=== PATIENT | male | born 1990 | race African-American/Black ===

== ENCOUNTER 2016-06-23 23:28 | Emergency (ER) | payer BC, OTHER ==
[~2016-06-23] VITALS: Ht 172.7 cm; Wt 88.5 kg
[2016-06-24] MEDS ORDERED: IV NORMAL SALINE 1000ML BAG 1,000 ML IV ONE
[2016-06-24 00:14] LABS: BASO % 0 % (0-3); EOS % 1 % (0-3); HEMATOCRIT 47.9 % (39.0-53.0); HEMOGLOBIN 16.1 g/dL (13.0-17.5); LYMPH % 17 % (24-48); MEAN CORPUSCULAR HEMOGLOBIN 32 pg (25-35); MEAN CORPUSCULAR HGB CONC 34 g/dL (31-37); MEAN CORPUSCULAR VOLUME 94 fL (79-100); MONO % 10 % (0-9); NEUT % 72 % (31-73); PLATELET COUNT 271 x10^3/uL (140-400); RED CELL DISTRIBUTION WIDTH 13.8 % (11.5-14.5); WHITE BLOOD COUNT 11.9 x10^3/uL (4.0-11.0)
[2016-06-24 00:16] LABS: BILIRUBIN,URINE NEGATIVE (NEG); GLUCOSE,URINE NEGATIVE (NEG); NITRITE,URINE NEGATIVE (NEG); PH,URINE 7.5; PROTEIN,URINE 30 mg/dL (NEG-TRACE)
[2016-06-24 00:21] LABS: BACTERIA,URINE 0 /HPF (0-FEW); RBC,URINE OCC /HPF (0-2); SQUAMOUS EPITHELIAL CELL,UR OCC /LPF
[2016-06-24 00:25] LABS: BARBITURATES NEG (NEG); BENZODIAZEPINES NEG (NEG); CANNABINOIDS POS (NEG); COCAINE NEG (NEG); ETHANOL, URINE NEG (NEG); METHADONE NEG (NEG); OPIATES NEG (NEG); PHENCYCLIDINE NEG (NEG)
[2016-06-24 00:30] LABS: CALCIUM 8.7 mg/dL (8.5-10.1); GFR 110.2; POTASSIUM 3.8 mmol/L (3.5-5.1)
[2016-06-24 00:36] LABS: ALBUMIN 3.8 g/dL (3.4-5.0); TOTAL BILIRUBIN 0.3 mg/dL (0.2-1.0); TOTAL PROTEIN 7.6 g/dL (6.4-8.2)
[2016-06-24] MEDS ORDERED: MORPHINE SULFATE 4 MG/ML DISP.SYRIN. IV/SQ PRN (00:45)
[2016-06-24] MEDS ORDERED: ONDANSETRON PF 4 MG/2 ML VIAL. IV ONE (01:00)
[2016-06-24] MEDS ORDERED: CONTRAST GIVEN MC PRN (01:30)
[2016-06-24] MEDS ORDERED: IOHEXOL 300 MG/ML 75 ML VIAL IV ONE (01:30)
--- NOTE | 2016-06-24 02:14 | RAD ---
PROCEDURE CT abdomen pelvis with contrast HISTORY Left flank pain and vomiting TECHNIQUE After IV infusion of95 cc of Optiray-320, helical CT scanning of the abdomen and pelvis was performed.GI contrast was administered by mouth. FINDINGS The liveer is homogeous in appearance and normal in size. The spleen is unremarkable and normal in size. The pancreas is homogeneous in appearance and no focal enlargement is seen. The gallbladder appears normal and no intra or extrahepatic biliary ductal dilatation is seen. No focal aneurysmal dilatation of the abdominal aorta is seen. No enlarged abdominal or pelvic lymphadenopathy is seen. No soft tissue mass is seen. No obstructive bowel pattern or bowel wall thickening or inflammatory change is seen. No free intraperitoneal fluid or abscess or free intraperitoneal air is seen. The lung bases are clear. Both kidneys are functioning and no hydronephrosis or renal mass or perinephric fluid collection is seen. The urinary bladder wall is smooth. No adrenal masses are seen. [The appendix is normal. IMPRESSION No significant CT abnormality of the abdomen or the pelvis is seen. Electronically signed by: Alber Burrows MD (Jun 24, 2016 02:12:34)
[2016-06-24] MEDS ORDERED: DICY10CA53 PO (02:46)
[2016-06-24] MEDS ORDERED: ONDA4TAB7 PO (02:46)
[2016-06-24 03:00] VITALS: BP 138/71
--- NOTE | 2016-06-24 03:20 | ED.ADGEN ---
Past Medical History Past Medical History: No Pertinent History Past Surgical History: Other Additional Past Surgical Histo: toe Alcohol Use: None Drug Use: Marijuana Adult General Chief Complaint Chief Complaint: FLANK PAIN HPI HPI Patient is a 25 year old man, with no significant past medical history, who presents to the emergency department with complaint of left flank pain, nausea, vomiting, loose stools over the past several days. 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 Denies any weakness, numbness or tingling, states that he does have some radiation to the flank pain in the abdomen. No fevers or chills, no recent travel, no ingestions, admits to marijuana use, no drugs or alcohol, no injuries. Patient states had decreased appetite since this began, and is feeling dehydrated. Review of Systems Review of Systems Constitutional: Denies fever or chills. [] Eyes: Denies change in visual acuity. [] HENT: Denies nasal congestion or sore throat. [] Respiratory: Denies cough or shortness of breath. [] Cardiovascular: Denies chest pain or edema. [] GI: Left flank, left abdominal pain, nausea, vomiting, diarrhea. : Denies dysuria. [] Musculoskeletal: Denies back pain or joint pain. [] Integument: Denies rash. [] Neurologic: Denies headache, focal weakness or sensory changes. [] Endocrine: Denies polyuria or polydipsia. [] Lymphatic: Denies swollen glands. [] Psychiatric: Denies depression or anxiety. [] Current Medications Current Medications Current Medications Medications (Trade) Dose Ordered Sig/Idalia Start Time Stop Time Status Last Admin Dose Admin Info (Do NOT chart on this entry -- for MONITORING) 1 each PRN DAILY PRN 06/24/16 01:30 06/26/16 01:29 Iohexol (Omnipaque 300 Mg/ml) 75 ml 1X ONCE 06/24/16 01:30 06/24/16 01:31 DC 06/24/16 01:41 75 ML Morphine Sulfate 4 mg PRN Q15MIN PRN 06/24/16 00:45 06/25/16 00:44 06/24/16 01:04 4 MG Ondansetron HCl (Zofran) 4 mg 1X ONCE 06/24/16 01:00 06/24/16 01:01 DC 06/24/16 01:00 4 MG Sodium Chloride (Iv Sodium Chloride 0.9% 1000ml Bag) 1,000 ml @ 1,000 mls/hr 1X ONCE 06/24/16 00:00 06/24/16 00:59 DC 06/24/16 00:15 1,000 MLS/HR Allergies Allergies Allergies Coded Allergies Type Severity Reaction Last Updated Verified No Known Drug Allergies 06/23/16 No Physical Exam Physical Exam Constitutional: Well developed, well nourished, no acute distress, slight pallor noted. [] HENT: Normocephalic, atraumatic, bilateral external ears normal, oropharynx moist, no oral exudates, nose normal. [] Eyes: PERRLA, EOMI, conjunctiva normal, no discharge. [] Neck: Normal range of motion, no tenderness, supple, no stridor. [] Cardiovascular:Heart rate regular rhythm, no murmur , S1, S2, no rubs or gallops. [] Lungs & Thorax: Bilateral breath sounds clear to auscultation, no wheezing, rhonchi, rales. No chest or crepitus or tenderness. [] Abdomen: Bowel sounds normal, soft, mild initial patient in the left lower quadrant and periumbilical, patient with left flank tenderness palpation, no masses, no pulsatile masses. [] Skin: Warm, dry, no erythema, no rash. [] Back: No tenderness, no CVA tenderness. [] Extremities: No tenderness, no cyanosis, no clubbing, ROM intact, no edema. [] Neurologic: Alert and oriented X 3, normal motor function, normal sensory function, no focal deficits noted. [] Psychologic: Affect normal, judgement normal, mood normal. [] Current Patient Data Vital Signs Vital Signs Date Time Temp Pulse Resp B/P Pulse Ox O2 Delivery O2 Flow Rate FiO2 06/24/16 03:00 75 138/71 99 Room Air 06/24/16 01:04 18 06/23/16 23:38 97.5 97.5 Lab Values Laboratory Tests Test 06/23/16 23:50 06/23/16 23:59 Urine Collection Type Unknown Urine Color Yellow Urine Clarity Clear Urine pH 7.5 Urine Specific [place] 1.025 Urine Protein 30mg/dL (NEG-TRACE) Urine Glucose (UA) Negativemg/dL (NEG) Urine Ketones (Stick) Negativemg/dL (NEG) Urine Blood Negative (NEG) Urine Nitrite Negative (NEG) Urine Bilirubin Negative (NEG) Urine Urobilinogen Dipstick 1.0mg/dL (0.2 mg/dL) Urine Leukocyte Esterase Trace (NEG) Urine RBC Occ/HPF (0-2) Urine WBC 1-4/HPF (0-4) Urine Squamous Epithelial Cells Occ/LPF Urine Bacteria 0/HPF (0-FEW) Urine Mucus Slight/LPF Urine Opiates Screen Neg (NEG) Urine Methadone Screen Neg (NEG) Urine Barbiturates Neg (NEG) Urine Phencyclidine Screen Neg (NEG) Urine Amphetamine/Methamphetamine Neg (NEG) Urine Benzodiazepines Screen Neg (NEG) Urine Cocaine Screen Neg (NEG) Urine Cannabinoids Screen Pos (NEG) Urine Ethyl Alcohol Neg (NEG) White Blood Count 11.9x10^3/uL (4.0-11.0) H Red Blood Count 5.10x10^6/uL (4.30-5.70) Hemoglobin 16.1g/dL (13.0-17.5) Hematocrit 47.9% (39.0-53.0) Mean Corpuscular Volume 94fL (79-100) Mean Corpuscular Hemoglobin 32pg (25-35) Mean Corpuscular Hemoglobin Concent 34g/dL (31-37) Red Cell Distribution Width 13.8% (11.5-14.5) Platelet Count 271x10^3/uL (140-400) Neutrophils (%) (Auto) 72% (31-73) Lymphocytes (%) (Auto) 17% (24-48) L Monocytes (%) (Auto) 10% (0-9) H Eosinophils (%) (Auto) 1% (0-3) Basophils (%) (Auto) 0% (0-3) Neutrophils # (Auto) 8.5x10^3uL (1.8-7.7) H Lymphocytes # (Auto) 2.0x10^3/uL (1.0-4.8) Monocytes # (Auto) 1.2x10^3/uL (0.0-1.1) H Eosinophils # (Auto) 0.1x10^3/uL (0.0-0.7) Basophils # (Auto) 0.0x10^3/uL (0.0-0.2) Sodium Level 138mmol/L (136-145) Potassium Level 3.8mmol/L (3.5-5.1) Chloride Level 102mmol/L (98-107) Carbon Dioxide Level 23mmol/L (21-32) Anion Gap 13 (6-14) Blood Urea Nitrogen 12mg/dL (8-26) Creatinine 1.0mg/dL (0.7-1.3) Estimated GFR (Cockcroft-Gault) 110.2 BUN/Creatinine Ratio 12 (6-20) Glucose Level 124mg/dL (70-99) H Calcium Level 8.7mg/dL (8.5-10.1) Total Bilirubin 0.3mg/dL (0.2-1.0) Aspartate Amino Transferase (AST) 19U/L (15-37) Alanine Aminotransferase (ALT) 33U/L (16-63) Alkaline Phosphatase 63U/L (46-116) Total Protein 7.6g/dL (6.4-8.2) Albumin 3.8g/dL (3.4-5.0) Albumin/Globulin Ratio 1.0 (1.0-1.7) Lipase 84U/L (73-393) Laboratory Tests 06/23/16 23:59 Laboratory Tests 06/23/16 23:59 EKG EKG [] Radiology/Procedures Radiology/Procedures [] [facility] [address] [place] [address] IMAGING REPORT Signed PATIENT: GSUTAVO SCANLON ACCOUNT: [id number] : 1990 LOCATION: ER AGE: 25 SEX: M EXAM STATUS: REG ER ORD. PHYSICIAN: FABIANA PIPER DO REASON: L flank pain PROCEDURE: CT ABD PELV W/ IV CONTRST ONLY PROCEDURE CT abdomen pelvis with contrast HISTORY Left flank pain and vomiting TECHNIQUE After IV infusion of95 cc of Optiray-320, helical CT scanning of the abdomen and pelvis was performed.GI contrast was administered by mouth. FINDINGS The liveer is homogeous in appearance and normal in size. The spleen is unremarkable and normal in size. The pancreas is homogeneous in appearance and no focal enlargement is seen. The gallbladder appears normal and no intra or extrahepatic biliary ductal dilatation is seen. No focal aneurysmal dilatation of the abdominal aorta is seen. No enlarged abdominal or pelvic lymphadenopathy is seen. No soft tissue mass is seen. No obstructive bowel pattern or bowel wall thickening or inflammatory change is seen. No free intraperitoneal fluid or abscess or free intraperitoneal air is seen. The lung bases are clear. Both kidneys are functioning and no hydronephrosis or renal mass or perinephric fluid collection is seen. The urinary bladder wall is smooth. No adrenal masses are seen. [The appendix is normal. IMPRESSION No significant CT abnormality of the abdomen or the pelvis is seen. Electronically signed by: Analia Burrows MD (Jun 24, 2016 02:12:34) DICTATED and SIGNED BY: ANALIA BURROWS III, MD DATE: 06/24/16211 CC: FABIANA PIPER DO; NO PCP ~ Course & Med Decision Making Course & Med Decision Making Pertinent Labs and Imaging studies reviewed. (See chart for details) Patient appears mildly clinically dry, initiated on IV fluids, antiemetics and pain medication and is complaining of nausea and pain in the ED. Based on history and examination, we'll proceed with CT of the abdomen and pelvis for further elucidation after discussion with patient at bedside. Laboratory studies reveal mild cytosis 11.9, no other significant abnormalities identified. CT abdomen and pelvis is unremarkable. Patient is feeling much better after receiving antiemetics and fluids and pain medication in the ED. UDS was positive for marijuana which patient admits to using, discussed the patient he may be expressed and viral illness, instructed to push fluids, get plenty of rest, and follow bland diet. Patient was also given a work note. Given clear and detailed return instructions, and medication instructions precautions for use of Zofran and Bentyl, with which the patient voiced understanding and agreement. On reevaluation he states the pain is fully resolved, and he is feeling much better receiving IV fluids in the ED. Patient discharged home with precautions and instructions as stated, in stable condition. Dragon Disclaimer Dragon Disclaimer This electronic medical record was generated, in whole or in part, using a voice recognition dictation system. Departure Impression: Primary Impression: Flank pain Additional Impression: Nausea and vomiting Disposition: HOME, SELF-CARE Condition: IMPROVED Scripts Dicyclomine Hcl (Bentyl)10 Mg [id number] Mg PO QID PRN PAIN #12 TAB Prov:FABIANA PIPER DO 06/24/16 Ondansetron Hcl (Zofran)4 Mg Tablet1 Tab PO PRN Q6-8HRS #10 TAB Prov:FABIANA PIPER DO 06/24/16 Problem Qualifiers FABIANA PIPER DO Jun 24, 2016 03:20
== END 2016-06-24 03:05 | disposition home or self-care (01) ==
LOC: ER 23:28
DX: R10.9 Unspecified abdominal pain (principal); R11.2 Nausea with vomiting, unspecified; R63.0 Anorexia; F12.10 Cannabis abuse, uncomplicated
CPT/HCPCS: 36415; 74177; 80053; 80305; 80320; 81001; 83690; 85027; 87086; 96360; 96361; 96374; 96375; 99285; J2270; J2405; J7030; Q9967; G0481

== ENCOUNTER 2021-07-13 14:17 | Emergency (ER) | payer BC, OTHER ==
[~2021-07-13] VITALS: Ht 172.7 cm; Wt 100.9 kg
[~2021-07-13 14:17] MED LIST: DICY10CA53 PO; ONDA4TAB7 PO
[2021-07-13] MEDS ORDERED: KETOROLAC 30 MG/ML VIAL. IVP ONE (15:00)
[2021-07-13] MEDS ORDERED: IV NORMAL SALINE 1000ML BAG 1,000 ML IV ONE (15:00)
--- NOTE | 2021-07-13 15:17 | PHYS DOC ---
Past Medical History Past Medical History: No Pertinent History Past Surgical History: Other Additional Past Surgical Histo: toe Smoking Status: Never Smoker Alcohol Use: None Drug Use: Marijuana General Adult EDM: Chief Complaint: FLANK PAIN HPI: HPI: Patient is a 30-year-old male who presents today with right-sided back pain that started approximately 4:00 this morning. Patient states that he awoke this morning to a throbbing sensation in his right lower back, he said that he has been ongoing throughout the day and has not stopped, he comes to the emergency department for further evaluation and management. Patient denies nausea, vomiting, or diarrhea, patient also states that he has not had any painful urination, frequency urination or hematuria, patient also verbalizes he has not had any fever or chills. Patient states he has no past medical history. Review of Systems: Review of Systems: Constitutional: Denies fever or chills. [] Eyes: Denies change in visual acuity. [] HENT: Denies nasal congestion or sore throat. [] Respiratory: Denies cough or shortness of breath. [] Cardiovascular: Denies chest pain or edema. [] GI: Denies abdominal pain, nausea, vomiting, bloody stools or diarrhea. [] : Denies dysuria. [] Musculoskeletal: Right low back pain Integument: Denies rash. [] Neurologic: Denies headache, focal weakness or sensory changes. [] Endocrine: Denies polyuria or polydipsia. [] Lymphatic: Denies swollen glands. [] Psychiatric: Denies depression or anxiety. [] Heart Score: C/O Chest Pain: No Risk Factors: Risk Factors: DM, Current or recent (<one month) smoker, HTN, HLP, family history of CAD, obesity. Risk Scores: Score 0 - 3: 2.5% MACE over next 6 weeks - Discharge Home Score 4 - 6: 20.3% MACE over next 6 weeks - Admit for Clinical Observation Score 7 - 10: 72.7% MACE over next 6 weeks - Early Invasive Strategies Current Medications: Current Medications Medications (Trade) Dose Ordered Sig/Idalia Start Time Stop Time Status Last Admin Dose Admin Ketorolac Tromethamine (Toradol 30mg Vial) 30 mg 1X ONCE 07/13/21 15:00 07/13/21 15:05 DC Sodium Chloride 1,000 ml @ 999 mls/hr 1X ONCE 07/13/21 15:00 07/13/21 16:00 Allergies: Allergies: Allergies Coded Allergies Type Severity Reaction Last Updated Verified No Known Drug Allergies 06/23/16 No Physical Exam: PE: Constitutional: Well developed, well nourished, no acute distress, non-toxic appearance. [] HENT: Normocephalic, atraumatic, bilateral external ears normal, oropharynx moist, no oral exudates, nose normal. [] Eyes: PERRLA, EOMI, conjunctiva normal, no discharge. [] Neck: Normal range of motion, no tenderness, supple, no stridor. [] Cardiovascular:Heart rate regular rhythm, no murmur [] Lungs & Thorax: Bilateral breath sounds clear to auscultation [] Abdomen: Bowel sounds normal, soft, no tenderness, no masses, no pulsatile masses. [] Skin: Warm, dry, no erythema, no rash. [] Back: Right low back tenderness with palpation noted, no lacerations, abrasions, contusions, or ecchymosis noted Extremities: No tenderness, no cyanosis, no clubbing, ROM intact, no edema. [] Neurologic: Alert and oriented X 3, normal motor function, normal sensory function, no focal deficits noted. [] Psychologic: Affect normal, judgement normal, mood normal. [] Current Patient Data: Labs: Laboratory Tests Test 07/13/21 14:56 07/13/21 15:50 07/13/21 16:47 Urine Collection Type Unknown Urine Color (Auto) Light yellow Urine Turbidity Clear Urine pH (Auto) 6.0 Urine Specific [place] 1.021 Urine Protein (Auto) Negative mg/dL Urine Glucose (Auto)(UA) Negative mg/dL Urine Ketones (Auto) Negative mg/dL Urine Blood (Auto) Negative Urine Nitrite Negative Urine Bilirubin (Auto) Negative Urine Urobilinogen (Auto) Normal mg/dL Urine Leukocyte Esterase (Auto) Negative Urine RBC Occ /HPF Urine WBC 1-4 /HPF Urine Bacteria 0 /HPF Urine Mucus Mod /LPF White Blood Count 7.5 x10^3/uL Red Blood Count 4.57 x10^6/uL Hemoglobin 14.6 g/dL Hematocrit 42.6 % Mean Corpuscular Volume 93 fL Mean Corpuscular Hemoglobin 32 pg Mean Corpuscular Hemoglobin Concent 34 g/dL Red Cell Distribution Width 13.8 % Platelet Count 304 x10^3/uL Neutrophils (%) (Auto) 51 % Lymphocytes (%) (Auto) 40 % Monocytes (%) (Auto) 7 % Eosinophils (%) (Auto) 2 % Basophils (%) (Auto) 1 % Neutrophils # (Auto) 3.8 x10^3/uL Lymphocytes # (Auto) 3.0 x10^3/uL Monocytes # (Auto) 0.5 x10^3/uL Eosinophils # (Auto) 0.1 x10^3/uL Basophils # (Auto) 0.0 x10^3/uL Sodium Level 140 mmol/L Potassium Level 4.7 mmol/L Chloride Level 105 mmol/L Carbon Dioxide Level 28 mmol/L Anion Gap 7 Blood Urea Nitrogen 9 mg/dL Creatinine 1.1 mg/dL Estimated GFR (Cockcroft-Gault) 95.1 BUN/Creatinine Ratio 8 Glucose Level 69 mg/dL Calcium Level 8.3 mg/dL Total Bilirubin 0.2 mg/dL Aspartate Amino Transf (AST/SGOT) 20 U/L Alanine Aminotransferase (ALT/SGPT) 39 U/L Alkaline Phosphatase 47 U/L Total Protein 6.4 g/dL Albumin 3.2 g/dL Albumin/Globulin Ratio 1.0 Current Medications Medications (Trade) Dose Ordered Sig/Idalia Route PRN Reason Start Time Stop Time Status Last Admin Dose Admin Sodium Chloride 1,000 ml @ 999 mls/hr 1X ONCE IV 07/13/21 15:00 07/13/21 16:00 DC 07/13/21 15:55 Ketorolac Tromethamine (Toradol 30mg Vial) 30 mg 1X ONCE IVP 07/13/21 15:00 07/13/21 15:05 DC 07/13/21 16:02 Iohexol (Omnipaque 300 Mg/ml) 75 ml 1X ONCE IV 07/13/21 16:30 07/13/21 16:31 DC 07/13/21 16:21 Info (CONTRAST GIVEN -- Rx MONITORING) 1 each PRN DAILY PRN MC SEE COMMENTS 07/13/21 16:30 07/15/21 16:29 Vital Signs: Vital Signs Date Time Temp Pulse Resp B/P (MAP) Pulse Ox O2 Delivery O2 Flow Rate FiO2 07/13/21 14:46 98.7 68 20 133/77 (95) 100 Room Air 98.7 EKG: EKG: [] Radiology/Procedures: Radiology/Procedures: REASON: RLQ PAIN, LOW BACK PAIN R/O STONE, APPENDICITIS PROCEDURE: CT ABD PELV W/ IV CONTRST ONLY EXAMINATION: CT abdomen and pelvis with IV contrast. INDICATION:30 years, Male, right lower quadrant abdominal pain. TECHNIQUE: Axial CT images of the abdomen and pelvis were obtained. Coronal and sagittal reformatted performed. COMPARISON: CT dated 06/24/2016. Exposure: One or more of the following individualized dose reduction techniques were utilized for this examination: 1. Automated exposure control 2. Adjustment of the mA and/or kV according to patient size 3. Use of iterative reconstruction technique. FINDINGS: LOWER CHEST: Unremarkable. ABDOMEN/PELVIS: Liver, gallbladder, biliary ducts, spleen, pancreas, adrenal glands and kidneys are unremarkable. No bowel obstruction. Normal appendix. No abdominopelvic lymphadenopathy by size criteria. Patent abdominal vasculatures. No pneumoperitoneum or ascites. Decompressed urinary bladder which limits evaluation. Unremarkable prostate. MUSCULOSKELETAL STRUCTURES: No acute osseous process. IMPRESSION: No acute intra-abdominal findings. Normal appendix. Electronically signed by: Per Jorgensen MD (07/13/2021 4:39 PM) [facility] DICTATED and SIGNED BY: PER JORGENSEN MD DATE: 07/13/211635[] Course & Med Decision Making: Course & Med Decision Making Pertinent Labs and Imaging studies reviewed. (See chart for details) 1800 I reviewed radiological and laboratory results with patient I did inform him that I found no acute processes at this time, patient is to follow-up with his primary care physician in 5 to 7 days if his symptoms have not improved. I did inform patient should his symptoms localized to the right lower quadrant, he develop a fever, have nausea and vomiting unable to keep any by mouth fluids down that he should return here to the emergency department for further evaluation and management. Patient is instructed to take [id number] Motrin as needed for pain also to use [id number] Lidoderm patches as needed for localized pain relief and ice. Patient verbalized understanding of this and agreeable with the plan of care. Sid Disclaimer: Sid Disclaimer: This electronic medical record was generated, in whole or in part, using a voice recognition dictation system. Departure Departure Impression: Primary Impression: Flank pain Disposition: HOME / SELF CARE / HOMELESS Condition: STABLE Referrals: NO PCP (PCP) Patient Instructions: Flank Pain Additional Instructions: Motrin 600 mg every 6 hours as needed for pain, use with caution and take with food may cause stomach upset Follow-up with your primary care physician or one of the clinics listed below in 3 to 5 days if your pain is not improving [id number] Lidoderm patches as labeled directed Return here to the emergency department should your pain localizes to the right lower quadrant, you have nausea and vomiting unable to keep any by mouth fluids down, or develop a fever. [facility] [address] [place] [address] [facility] [address] [place] [address] [facility] [address] [facility] [place] [address] [facility] [address] [place] [address] [facility] [address] [place] [address] [address] [address] [place] [address] [facility] [address] [place] [address] [facility] [address] [place] [address] [facility] [address] [place] [address] [facility] [address] [place] [address] TALYA HERNANDEZ [employer] MIXER Jul 13, 2021 15:17
[2021-07-13 16:04] LABS: BASO % 1 % (0-3); EOS # 0.1 x10^3/uL (0.0-0.7); EOS % 2 % (0-3); HEMATOCRIT 42.6 % (39.0-53.0); HEMOGLOBIN 14.6 g/dL (13.0-17.5); LYMPH % 40 % (24-48); MEAN CORPUSCULAR HEMOGLOBIN 32 pg (25-35); MEAN CORPUSCULAR HGB CONC 34 g/dL (31-37); MEAN CORPUSCULAR VOLUME 93 fL (79-100); MONO # 0.5 x10^3/uL (0.0-1.1); MONO % 7 % (0-9); NEUT # 3.8 x10^3/uL (1.8-7.7); NEUT % 51 % (31-73); PLATELET COUNT 304 x10^3/uL (140-400); RED BLOOD COUNT 4.57 x10^6/uL (4.30-5.70); RED CELL DISTRIBUTION WIDTH 13.8 % (11.5-14.5); WHITE BLOOD COUNT 7.5 x10^3/uL (4.0-11.0)
[2021-07-13 16:13] LABS: BACTERIA,URINE 0 /HPF (0-FEW); RBC,URINE OCC /HPF (0-2)
[2021-07-13 16:30] VITALS: BP 122/69
[2021-07-13] MEDS ORDERED: CONTRAST GIVEN. MC PRN (16:30)
[2021-07-13] MEDS ORDERED: IOHEXOL 300 MG/ML 100ML VIAL. IV ONE (16:30)
--- NOTE | 2021-07-13 16:42 | RAD ---
EXAMINATION: CT abdomen and pelvis with IV contrast. INDICATION:30 years, Male, right lower quadrant abdominal pain. TECHNIQUE: Axial CT images of the abdomen and pelvis were obtained. Coronal and sagittal reformatted performed. COMPARISON: CT dated 06/24/2016. Exposure: One or more of the following individualized dose reduction techniques were utilized for thi s examination: 1. Automated exposure control 2. Adjustment of the mA and/or kV according to patient size 3. Use of iterative reconstruction technique. FINDINGS: LOWER CHEST: Unremarkable. ABDOMEN/PELVIS: Liver, gallbladder, biliary ducts, spleen, pancreas, adrenal glands and kidneys are unremarkable. No bowel obstruction. Normal appendix. No abdominopelvic lymphadenopathy by size criteria. Patent abdomi nal vasculatures. No pneumoperitoneum or ascites. Decompressed urinary bladder which limits evaluatio n. Unremarkable prostate. MUSCULOSKELETAL STRUCTURES: No acute osseous process. IMPRESSION: No acute intra-abdominal findings. Normal appendix. Electronically signed by: Willie Jorgensen MD (07/13/2021 4:39 PM) [facility]
[2021-07-13 17:33] LABS: CALCIUM 8.3 mg/dL (8.5-10.1); CREATININE 1.1 mg/dL (0.7-1.3); GFR 95.1; POTASSIUM 4.7 mmol/L (3.5-5.1)
[2021-07-13 17:37] LABS: ALBUMIN 3.2 g/dL (3.4-5.0); TOTAL BILIRUBIN 0.2 mg/dL (0.2-1.0); TOTAL PROTEIN 6.4 g/dL (6.4-8.2)
== END 2021-07-13 18:24 | disposition home or self-care (01) ==
LOC: ER 14:17
DX: R10.31 Right lower quadrant pain (principal); M54.50 Low back pain, unspecified
CPT/HCPCS: 36415; 74177; 80053; 81001; 85025; 96361; 96374; 99285; J1885; J7030; Q9967